=== PATIENT | female | born 1970 | race Caucasian/White ===

== ENCOUNTER 2025-03-17 14:58 | Emergency (ER) | payer BC, MEDICAID ==
[~2025-03-17] VITALS: Ht 160 cm; Wt 87.9 kg
[2025-03-17] MEDS ORDERED: DOXY100T (15:21)
[2025-03-17 16:16] LABS: BASO # 0.0 10^3/uL (0.0-0.2); BASO % 0.6 % (0.0-1.0); EOS # 0.2 10^3/uL (0.0-0.5); EOS % 2.6 % (0.0-3.0); LYMPH # 1.5 10^3/uL (1.5-5.0); LYMPH % 20.3 % (24.0-44.0); MONO # 0.5 10^3/uL (0.0-0.8); MONO % 6.5 % (2.0-8.0); NEUTROPHILS # 5.1 10^3/uL (1.5-8.5); NEUTROPHILS % 69.7 % (36.0-66.0); PLATELET COUNT, AUTOMATED 302 10^3/uL (150-450)
[2025-03-17 16:24] LABS: ERYTHROCYTE SEDIMENTATION RATE 16 mm/hr (0-30)
[2025-03-17 16:37] LABS: C REACTIVE PROTEIN QUANTITATIV < 0.50 MG/DL (<1.0); CALCIUM LEVEL 9.5 MG/DL (8.5-10.1); CARBON DIOXIDE LEVEL 27 MMOL/L (20-31); CHLORIDE LEVEL 106 MMOL/L (98-107); CREATININE FOR GFR 0.58 MG/DL (0.55-1.30); GLOMERULAR FILTRATION RATE > 90.0 (>51); POTASSIUM SERUM 4.0 MMOL/L (3.5-5.1); SODIUM LEVEL 140 MMOL/L (136-145)
[2025-03-17 18:12] VITALS: BP 135/76; TEMP 97.3; O2SAT 97
== END 2025-03-17 18:27 | disposition home or self-care (01) ==
LOC: M ED 14:58
DX: M79.662 Pain in left lower leg (principal)